=== PATIENT | male | born 1955 | race Caucasian/White ===

== ENCOUNTER 2020-07-30 07:49 | Outpatient (REF) | payer BC, SELFPAY | END 2020-07-30 07:50 | disposition home or self-care (01) | LOC: HO.HOSX 07:49 | PROVIDERS: Visit Provider Orthopaedic Surgery | DX: Z13.89 Encounter for screening for other disorder (principal) ==

== ENCOUNTER 2020-07-31 09:58 | Outpatient (REF) | payer BC, SELFPAY ==
--- NOTE | 2020-07-31 10:33 | ECG_ITS ---
Test Reason : CP Blood Pressure : / mmHG Vent. Rate : 065 BPM Atrial Rate : 065 BPM P-R Int : 186 ms QRS Dur : 082 ms QT Int : 402 ms P-R-T Axes : 067 050 035 degrees QTc Int : 418 ms Normal sinus rhythm Normal ECG When compared with ECG of 16-NOV-2007 06:18, No significant change was found Referred By: Deepak Em Electronically Signed By:RAE MCCLAIN
--- NOTE | 2020-07-31 10:48 | XR_ITS ---
EXAMINATION: BILATERAL KNEE X-RAY CLINICAL INFORMATION: Osteoarthritis COMPARISON: Previous x-ray most recent October 2019 TECHNIQUE: 3 views of each knee FINDINGS: Right: There is varus angulation. Bone alignment is otherwise normal. No fracture or dislocation is seen. There is evidence of tricompartment arthritis with joint space narrowing and osteophyte formation. There is a large joint effusion. Left: There is varus angulation. Bone alignment is otherwise normal. No fracture or dislocation is seen. There is tricompartment arthritis and joint space narrowing and osteophyte formation. There is a moderate joint effusion. XR/XR knee RT 2V IMPRESSION: I lateral valgus angulation, tricompartment arthritis and joint effusion.
--- NOTE | 2020-07-31 10:48 | XR_ITS ---
EXAMINATION: BILATERAL KNEE X-RAY CLINICAL INFORMATION: Osteoarthritis COMPARISON: Previous x-ray most recent October 2019 TECHNIQUE: 3 views of each knee FINDINGS: Right: There is varus angulation. Bone alignment is otherwise normal. No fracture or dislocation is seen. There is evidence of tricompartment arthritis with joint space narrowing and osteophyte formation. There is a large joint effusion. Left: There is varus angulation. Bone alignment is otherwise normal. No fracture or dislocation is seen. There is tricompartment arthritis and joint space narrowing and osteophyte formation. There is a moderate joint effusion. XR/XR knee standing BI IMPRESSION: I lateral valgus angulation, tricompartment arthritis and joint effusion.
--- NOTE | 2020-07-31 10:48 | XR_ITS ---
EXAMINATION: BILATERAL KNEE X-RAY CLINICAL INFORMATION: Osteoarthritis COMPARISON: Previous x-ray most recent October 2019 TECHNIQUE: 3 views of each knee FINDINGS: Right: There is varus angulation. Bone alignment is otherwise normal. No fracture or dislocation is seen. There is evidence of tricompartment arthritis with joint space narrowing and osteophyte formation. There is a large joint effusion. Left: There is varus angulation. Bone alignment is otherwise normal. No fracture or dislocation is seen. There is tricompartment arthritis and joint space narrowing and osteophyte formation. There is a moderate joint effusion. XR/XR knee LT 2V IMPRESSION: I lateral valgus angulation, tricompartment arthritis and joint effusion.
[2020-07-31 10:56] LABS: Basophils Percent Auto 0.8 % (0-2); Eosinophils Absolute Auto 0.3 X10*3/uL (0.0-0.4); Eosinophils Percent Auto 5.1 % (0-4); Hemoglobin 13.2 g/dl (14.0-18.0); Imm Gran Abs Auto 0.01 X10*3/uL (0.00-0.03); Imm Gran Pct Auto 0.2 % (0.0-0.4); Lymphocytes Absolute Auto 1.6 X10*3/uL (1.2-4.9); Lymphocytes Percent Auto 30.9 % (20-40); MANUAL DIFF FLAG NO; Mean Corpuscular HGB Conc 32.2 g/dl (31.0-36.0); Mean Corpuscular Hemoglobin 30.1 pg (27.0-33.0); Mean Corpuscular Volume 93.6 fL (80-98); Mean Platelet Volume 9.8 fL (9.4-12.4); Monocytes Absolute Auto 0.6 X10*3/uL (0.1-1.2); Monocytes Percent Auto 10.6 % (2-11); Neutrophils Absolute Auto 2.8 X10*3/uL (2.0-8.3); Neutrophils Percent Auto 52.4 % (45-73); Platelet Count 224 X10*3/uL (160-400); Red Blood Count 4.38 X10*6/uL (4.60-5.80); Red Cell Distribution Width 12.1 % (11.0-16.0); White Blood Count 5.3 X10*3/uL (4.8-10.8)
[2020-07-31 11:21] LABS: Anion Gap 11 (12-20); Blood Urea Nitrogen 17 mg/dL (9-16); Calcium 8.9 mg/dL (8.4-10.2); Carbon Dioxide 29 mmol/L (22-29); Chloride 105 mmol/L (96-108); Estimated Glomerular Filt Rate > 60; Glucose Random 107 mg/dL (60-115); Potassium 5.1 mmol/l (3.3-5.1); Sodium 140 mmol/L (135-145)
== END 2020-07-31 09:59 | disposition home or self-care (01) ==
LOC: HO.LAB 09:58
PROVIDERS: PCP Nurse Practitioner Family; Visit Provider Orthopaedic Surgery
DX: M17.0 Bilateral primary osteoarthritis of knee (principal)
CPT/HCPCS: 36415; 73560; 73565; 80048; 85025; 93005

== ENCOUNTER → 2020-08-30 12:48 | Outpatient (BNVA) | payer BC, SELFPAY | PROVIDERS: Visit Provider Physician Assistant ==

== ENCOUNTER 2020-09-04 05:51 | Inpatient (IN) | payer BC, SELFPAY ==
[2020-08-27 11:50] VITALS: BMI 31.1
[2020-08-27 12:12] VITALS: BP 137/72; PULSE 76; RESP 20; O2SAT 99
--- NOTE | 2020-08-27 12:33 | P.CONAN_ITS ---
Documented by User: Debo Piper 09/03/20 11:39 HPI - Anesthesia Eval Consult details Narrative: 65 yo M for Right Total Knee Replacement Pt on suboxone daily. To continue. Reviewed with Dr Blair PCP cleared ON LICENSE OF [facility] Past Medical History Medical History Acid reflux Anxiety Depression History of anemia History of opioid abuse Hypertension Family History Family history of problems with anesthesia: No Surgical History Surgical History History of carpal tunnel release Hx of abdominal surgery Hx of arthroscopy of left knee History of Problems with Anesthesia: No Social History Social History Are you a primary administrator health care facility to a significant other at home: No Do you presently have visiting nurse or other home services: No Smoking Status: Former smoker Smoking Quit Date: 5 yrs Second Hand Smoke Exposure: Yes Use of substances other than those prescribed or required for medical reasons: No Substance Use Type Other:: on suboxone x 8 years Have you been hit, kicked, punched, or otherwise hurt by someone within the past year? If so, by whom?: No Advance Directives: No Advance Directives Information Provided: No Advance Directives on File: No Recently lost weight without trying: No Narrative Narrative: No recent illness. >4 mets with walking/work Meds Allergies Allergy/AdvReac Type Severity Reaction Status Date / Time No Known Allergies Allergy Mild NOT Unverified 08/27/20 11:50 APPLICABLE Home Medications Medication Instructions Recorded Confirmed Type buprenorphine 8 mg-naloxone 2 mg 1.5 film BUCCAL Q24H 07/30/20 08/27/20 History sublingual film lorazepam 2 mg tablet 2 mg PO DAILY PRN 07/30/20 08/27/20 History bupropion HCl 3 tab PO DAILY 08/27/20 08/27/20 History buspirone 1 tab PO BID 08/27/20 08/27/20 History finasteride 1 tab PO DAILY 08/27/20 08/27/20 History ibuprofen [Advil] 400 mg PO Q8H PRN 08/27/20 08/27/20 History lisinopril 10 mg PO DAILY 08/27/20 08/27/20 History omeprazole 20 mg PO DAILY PRN 08/27/20 08/27/20 History Exam Exam Date and Time: August 27, 2020 1233 Height,Weight and Vital Signs: Height 5 ft 10 in Weight 98.43 kg Last Vital Signs Pulse 76 08/27/20 12:12 Resp 20 08/27/20 12:12 BP 137/72 08/27/20 12:12 Pulse Ox 99 08/27/20 12:12 Pertinent Lab Results Pertinent Lab Results: Laboratory Tests 07/31/20 07/31/20 10:22 10:22 WBC 5.3 Hgb 13.2 L Hct 41.0 L Plt Count 224 Sodium 140 Potassium 5.1 Chloride 105 Carbon Dioxide 29 BUN 17 H Creatinine 0.86 Narrative Narrative: EKG 07/31/20 Normal sinus rhythm Normal ECG When compared with ECG of 16-NOV-2007 06:18, No significant change was found Airway Mallampati Class: I TM Dist: >3cm Neck ROM: Full Loose/Missing/Broken Teeth: No Heart: RRR Lungs: CTAB Assessment and Plan Assessment Anesthesia Assessment: Anesthesia Plan Discussed and PAT Visit Documented by User: Adiel Beltran MD 09/04/20 08:57 PMFSH Past Medical History Medical History Acid reflux Anxiety Depression History of anemia History of opioid abuse Hypertension Surgical History Surgical History History of carpal tunnel release Hx of abdominal surgery Hx of arthroscopy of left knee Social History Social History Are you a primary administrator health care facility to a significant other at home: No Do you presently have visiting nurse or other home services: No Smoking Status: Former smoker Smoking Quit Date: 5 yrs Second Hand Smoke Exposure: Yes Use of substances other than those prescribed or required for medical reasons: No Substance Use Type Other:: on suboxone x 8 years Have you been hit, kicked, punched, or otherwise hurt by someone within the past year? If so, by whom?: No Advance Directives: No Advance Directives Information Provided: No Advance Directives on File: No Recently lost weight without trying: No Meds Allergies Allergy/AdvReac Type Severity Reaction Status Date / Time No Known Allergies Allergy Mild NOT Unverified 08/27/20 11:50 APPLICABLE Home Medications Medication Instructions Recorded Confirmed Type buprenorphine 8 mg-naloxone 2 mg 1.5 film BUCCAL Q24H 07/30/20 08/27/20 History sublingual film lorazepam 2 mg tablet 2 mg PO DAILY PRN 07/30/20 08/27/20 History bupropion HCl 3 tab PO DAILY 08/27/20 08/27/20 History buspirone 1 tab PO BID 08/27/20 08/27/20 History finasteride 1 tab PO DAILY 08/27/20 08/27/20 History ibuprofen [Advil] 400 mg PO Q8H PRN 08/27/20 08/27/20 History lisinopril 10 mg PO DAILY 08/27/20 08/27/20 History omeprazole 20 mg PO DAILY PRN 08/27/20 08/27/20 History Assessment and Plan Assessment Anesthesia Assessment: Anesthesia Plan Discussed and Chart Reviewed Final Anesthetic Review NPO: Yes ASA Class: II Final Preanesthetic Review: No Changes in Pt Med Stat, Meds/Allgs Chart Reviewed, Consent Obtained/Reviewed and Anes Risks/Benef Reviewed Patient Risk: Intermediate Procedure Risk: Intermediate Anesthetic Plan Anesthetic Plan: MAC:, Spinal and Regional Block Disposition: Standard PACU
[2020-08-27 15:35] LABS: MRSA Nasal PCR NEGATIVE (Negative); SA Nasal PCR NEGATIVE (Negative)
[2020-09-04] VITALS (13 sets, daily range): BP systolic 109–132; BP diastolic 62–90; PULSE 71–114; RESP 16–20; TEMP 36.1–39.1; O2SAT 94–100
--- NOTE | 2020-09-04 | XR_ITS ---
EXAMINATION: PORTABLE CHEST 1 VIEW CLINICAL INFORMATION: fever, tachycardia, post op . COMPARISON: 10/22/2011. TECHNIQUE: Portable frontal view of the chest was obtained. FINDINGS: The lungs are hypoexpanded. No focal infiltrate, effusion, edema, or pneumothorax. Cardiac and mediastinal silhouettes are within normal limits for technique. No acute bony abnormality seen. XR/XR chest 1V IMPRESSION: Hypoexpanded but otherwise no evidence of acute disease.
[2020-09-04] MEDS: Gabapentin 600 MG TABLET PO (06:43)
[2020-09-04 06:44] LABS: COVID-19 Test Negative (Negative)
--- NOTE | 2020-09-04 09:36 | MHC.SHP ---
Pre-Procedural Eval Section A The patient is an INPATIENT: No Changes since office visit: Yes Patient answered all questions; No Cold of Flu in the past 2 weeks, No New Medical Problems and No Changes in Medication The History & Physical has been completed within 30 days and I have reviewed it.: Yes Section B Chief Complaint: S/P TOTAL RIGHT KNEE Allergies: Allergies Allergy/AdvReac Type Severity Reaction Status Date / Time No Known Allergies Allergy Mild NOT Unverified 08/27/20 11:50 APPLICABLE Plan I have reviewed the history and physical and performed a pertinent physical examination on my patient. No changes have occurred unless specified.
--- NOTE | 2020-09-04 09:37 | PM.OP ---
Brief Operative Note Date of Service: 09/04/20 Pre-op diagnosis: right knee OA Post-op diagnosis: same Procedure: right TKA Implants: [employer] press fit 12/06/09CR/35a Surgeon: Deepak Em MD Anesthesia: regional and spinal Anne[place] Helper: Anuja Flanagan Estimated blood loss (mL): 150 Tourniquet time (min): 0 IV fluids (mL): 1,100 Pathology: other Condition: stable Disposition: PACU
--- NOTE | 2020-09-04 10:23 | XR_ITS ---
EXAMINATION: XR KNEE, RIGHT CLINICAL INFORMATION: Status post right total knee arthroplasty. COMPARISON: Radiographs of the right knee done on 07/31/2020. TECHNIQUE: Two views of the right knee. FINDINGS: Prosthetic components of the right total knee arthroplasty are appropriately aligned. No periprosthetic fracture. Gas from recent surgery is present in the joint and surrounding soft tissues. A joint effusion is present. XR/XR knee RT 2V IMPRESSION: Appropriate alignment of the right total knee arthroplasty.
[2020-09-04] MEDS: oxyCODONE HCl Immed Release 5 MG TABLET 10 MG PO ×2 (13:54→19:15)
[2020-09-04] MEDS: Dextrose 5 % and 0.45 % NaCl 1,000 ML 80 ML IVCONT (14:07)
[2020-09-04] MEDS: ceFAZolin Sodium/Dextrose,Iso 2 GM/50 ML PIGGYBACK IV (14:07)
[2020-09-04] MEDS: HYDROmorphone HCl 0.5 MG/0.5 ML SYRINGE 0.25 MG IVPUSH (14:33)
[2020-09-04] MEDS: ondansetron HCL 4 MG/2 ML VIAL IVPUSH (15:11)
[2020-09-04] MEDS: Acetaminophen 325 MG TABLET 650 MG PO (15:50)
[2020-09-04] MEDS: HYDROmorphone HCl 0.5 MG/0.5 ML SYRINGE IVPUSH (16:34)
[2020-09-04] MEDS: Buprenorphine/Naloxone 8/2 mg FILM 1.5 FILM BUCCAL (17:42)
[2020-09-04 17:47] LABS: Basophils Percent Auto 0.2 % (0-2); Eosinophils Percent Auto 0.1 % (0-4); Hematocrit 30.7 % (42-52); Hemoglobin 10.3 g/dl (14.0-18.0); Imm Gran Abs Auto 0.04 X10*3/uL (0.00-0.03); Imm Gran Pct Auto 0.3 % (0.0-0.4); Lymphocytes Absolute Auto 0.7 X10*3/uL (1.2-4.9); Lymphocytes Percent Auto 6.2 % (20-40); Mean Corpuscular HGB Conc 33.6 g/dl (31.0-36.0); Mean Corpuscular Hemoglobin 30.1 pg (27.0-33.0); Mean Corpuscular Volume 89.8 fL (80-98); Mean Platelet Volume 9.3 fL (9.4-12.4); Monocytes Absolute Auto 0.8 X10*3/uL (0.1-1.2); Monocytes Percent Auto 6.3 % (2-11); Neutrophils Absolute Auto 10.4 X10*3/uL (2.0-8.3); Neutrophils Percent Auto 86.9 % (45-73); Platelet Count 228 X10*3/uL (160-400); Red Blood Count 3.42 X10*6/uL (4.60-5.80); Red Cell Distribution Width 12.1 % (11.0-16.0)
[2020-09-04 17:50] LABS: MANUAL DIFF FLAG NO
[2020-09-04 18:09] LABS: Lactic Acid 1.2 mmol/L (0.5-2.0)
[2020-09-04 18:14] LABS: Anion Gap 11 (12-20); Blood Urea Nitrogen 16 mg/dL (9-16); Calcium 8.3 mg/dL (8.4-10.2); Carbon Dioxide 26 mmol/L (22-29); Chloride 100 mmol/L (96-108); Creatinine Clr Calc Pharmacy 104.6; Estimated Glomerular Filt Rate > 60; Glucose Random 131 mg/dL (60-115); Sodium 133 mmol/L (135-145)
--- NOTE | 2020-09-04 18:28 | P.CONIM_ITS ---
History of Present Illness Data of Consult Service Date: 09/04/20 Requesting physician: Federica Bailey Primary Care Provider: MAURA Boyd HPI Reason for consult: Medical Management 65 year old man admitted by orthopedic surgery and is status post right knee arthroplasty. Surgery was unremarkable, he has been able to eat and drink however his pain has been quite severe. He was able to get up and walk but he stated after the nerve block wore away the pain started. He had been medicated multiple times and has ice on the site. He spiked a fever of 101.2 and was tachycardic with heart rate of 107. Review of Systems Review of Systems: Denies any recent fever chills or decrease in appetite respiratory denies any shortness of breath coverage production cardiovascular is adjustment of any PND or edema gastrointestinal denies any dysphagia abdominal pain nausea vomiting or diarrh ea genitourinary denies any dysuria frequency or hematuria musculoskeletal See HPI neuropsych denies any weakness or seizures all other systems reviewed are negative [facility] Medical History Acid reflux Anxiety Depression History of anemia History of opioid abuse Hypertension Pertinent family history: No cardiac disease Surgical History History of carpal tunnel release Hx of abdominal surgery Hx of arthroscopy of left knee Social History Are you a primary career services representative to a significant other at home: No Do you presently have visiting nurse or other home services: No Smoking Status: Former smoker Smoking Quit Date: 5 yrs Second Hand Smoke Exposure: Yes Use of substances other than those prescribed or required for medical reasons: No Substance Use Type Other:: on suboxone x 8 years Have you been hit, kicked, punched, or otherwise hurt by someone within the past year? If so, by whom?: No Advance Directives: No Advance Directives Information Provided: No Advance Directives on File: No Recently lost weight without trying: No Meds Allergies Allergy/AdvReac Type Severity Reaction Status Date / Time No Known Allergies Allergy Mild NOT Unverified 08/27/20 11:50 APPLICABLE Home Medications Medication Instructions Recorded Confirmed Type buprenorphine 8 mg-naloxone 2 mg 1.5 film BUCCAL Q24H 07/30/20 08/27/20 History sublingual film bupropion HCl 450 mg PO DAILY 08/27/20 09/04/20 History buspirone 5 mg PO BID 08/27/20 09/04/20 History finasteride 1 mg PO DAILY 08/27/20 09/04/20 History ibuprofen [Advil] 400 mg PO Q8H PRN 08/27/20 08/27/20 History lisinopril 10 mg PO DAILY 08/27/20 08/27/20 History omeprazole 20 mg PO DAILY PRN 08/27/20 08/27/20 History lorazepam 0.5 mg PO DAILY PRN 09/04/20 09/04/20 History Physical Exam Vital Signs and Narrative: Vital Signs: Last Vital Signs Temp 101.2 F H 09/04/20 17:44 Pulse 107 H 09/04/20 15:38 Resp 19 09/04/20 15:38 BP 132/70 09/04/20 15:38 Pulse Ox 99 09/04/20 15:38 Body Mass Index 31.1 Appearing in no acute distress head is normocephalic atraumatic eyes pupils are PERRLA sclera is anicteric mouth throat mucous membranes are intact and moist neck is supple no lymphadenopathy, no JVD noted lung sounds are clear to auscultation heart regular rate rhythm, clear S1, S2 positive bowel sounds, abdomen is soft, nontender neuro patient is alert x3, no focal deficits MSK right knee dressing clean, dry and intact. Results Labs CBC and Chem 7: 09/04/20 17:37 09/04/20 17:37 Labs: Laboratory Results - last 24 hr 09/04/20 09/04/20 09/04/20 06:14 17:37 17:37 MCV 89.8 MCH 30.1 MCHC 33.6 RDW 12.1 Plt Count 228 MPV 9.3 L Immature Gran % (Auto) 0.3 Neut % (Auto) 86.9 H Lymph % (Auto) 6.2 L Fleming % (Auto) 6.3 Eos % (Auto) 0.1 Baso % (Auto) 0.2 Lymph # (Auto) 0.7 L Fleming # (Auto) 0.8 Eos # (Auto) 0.0 Baso # (Auto) 0.0 Abs Immat Gran (auto) 0.04 H Absolute Neuts (auto) 10.4 H Absolute Nucleated RBC 0.000 Nucleated RBC % (auto) 0.0 Anion Gap 11 L Estim Creat Clear Calc 104.6 Estimated GFR > 60 Random Glucose 131 H Lactic Acid Calcium 8.3 L D COVID-19 (BHARAT) Negative COVID-19 Clin Com See Note 09/04/20 17:37 MCV MCH MCHC RDW Plt Count MPV Immature Gran % (Auto) Neut % (Auto) Lymph % (Auto) Fleming % (Auto) Eos % (Auto) Baso % (Auto) Lymph # (Auto) Fleming # (Auto) Eos # (Auto) Baso # (Auto) Abs Immat Gran (auto) Absolute Neuts (auto) Absolute Nucleated RBC Nucleated RBC % (auto) Anion Gap Estim Creat Clear Calc Estimated GFR Random Glucose Lactic Acid 1.2 Calcium COVID-19 (BHARAT) COVID-19 Clin Com Imaging Radiologist's Impressions: Impressions Chest X-Ray 09/04/20 00:00 IMPRESSION: Hypoexpanded but otherwise no evidence of acute disease. Knee X-Ray 09/04/20 10:23 IMPRESSION: Appropriate alignment of the right total knee arthroplasty. Assessment and Plan (1) Localized osteoarthritis of right knee: Status: Acute 65 year old man admitted by orthopedic surgery and is status post right knee arthroplasty Right knee arthroplasty. Management as per surgical team. Pain. Adjust pain medication. Supportive care. Fever. Check Blood cultures, CXR, UA, lactic acid. Likely from pain, post surgery but will r/o sepsis. Hyponatremia. Mild, follow BMP. Hx of opiod abuse. Oxycodone abuse. On Suboxone. Continue. Depression. Continue home medications. HTN. Continue Lisinopril. GERD. PPI. DVT prophylaxis with full dose aspirin Discussed with Dr. Saavedra Full code
--- NOTE | 2020-09-04 19:07 | MHC.PIE ---
P: PATIENT IN 05/12 PAIN. UNRELIEVED BY OXYCODONE GIVEN AT 1354 AND DILAUDID GIVEN AT 1433. I: NOTIFIED CHRISTINA SWEET, DR. MORTON, DR. LUGO AND ROSALINA SWEET. NEW ORDER FOR DILAUDID 0.5MG IV Q3H, ADMINISTERED AT 1634. E: PATIENT STATES PAIN HAS DECREASED BUT HAS THROBBING PAIN INTERMITTENTLY.
--- NOTE | 2020-09-04 19:10 | MHC.PIE ---
P: PATIENT HAS A FEVER 102.3 ORALLY. I: NOTIFIED DOCTOR INSTRUM NO NEW ORDERS. NOTIFIED HEIDY MORALES. NEW ORDERS FOR SEPSIS WORK UP. E: PATIENT FEVER DECREASED TO 101.2. NOTIFIED HEIDY MORALES, NO NEW ORDERS AT THIS TIME.
[2020-09-04 21:31] LABS: Glucose Urine UA NEG (NEG); Leukocyte Esterase Urine NEG (NEG); Nitrite Urine NEG (NEG); Urine Blood 1+ (NEG); Urine Ketones NEG (NEG); Urine Protein NEG (NEG-TRACE)
[2020-09-04 21:33] LABS: Appearance Urine CLEAR; Color Urine YELLOW
[2020-09-04 21:38] LABS: Bacteria Urine TRACE /LPF; RBC Urine 0-2 /HPF (0); WBC Urine 0 /HPF (0-4)
[2020-09-04] MEDS: Celecoxib 200 MG CAPSULE PO (22:20)
[2020-09-04] MEDS: oxyCODONE HCl ER 10 MG TAB.ER.12H PO (22:20)
[2020-09-04] MEDS: busPIRone HCl 5 MG TABLET PO (22:20)
[2020-09-05] MEDS: HYDROmorphone HCl 0.5 MG/0.5 ML SYRINGE IVPUSH ×3 (01:00→10:01)
[2020-09-05] MEDS: Dextrose 5 % and 0.45 % NaCl 1,000 ML 80 ML IVCONT (01:11)
[2020-09-05 04:00] VITALS: BP 133/79; PULSE 93; RESP 20; TEMP 36.7; O2SAT 91
[2020-09-05] MEDS: oxyCODONE HCl Immed Release 5 MG TABLET 10 MG PO ×4 (05:53→20:40)
[2020-09-05 06:50] LABS: MANUAL DIFF FLAG NO
[2020-09-05 07:06] LABS: Basophils Percent Auto 0.2 % (0-2); Eosinophils Percent Auto 0.3 % (0-4); Hematocrit 28.6 % (42-52); Hemoglobin 9.5 g/dl (14.0-18.0); Imm Gran Abs Auto 0.04 X10*3/uL (0.00-0.03); Imm Gran Pct Auto 0.4 % (0.0-0.4); Lymphocytes Absolute Auto 1.5 X10*3/uL (1.2-4.9); Lymphocytes Percent Auto 13.9 % (20-40); Mean Corpuscular HGB Conc 33.2 g/dl (31.0-36.0); Mean Corpuscular Hemoglobin 30.3 pg (27.0-33.0); Mean Corpuscular Volume 91.1 fL (80-98); Mean Platelet Volume 9.5 fL (9.4-12.4); Monocytes Percent Auto 9.6 % (2-11); Neutrophils Absolute Auto 8.1 X10*3/uL (2.0-8.3); Neutrophils Percent Auto 75.6 % (45-73); Platelet Count 213 X10*3/uL (160-400); Red Blood Count 3.14 X10*6/uL (4.60-5.80); Red Cell Distribution Width 12.3 % (11.0-16.0); White Blood Count 10.7 X10*3/uL (4.8-10.8)
[2020-09-05 07:18] LABS: Anion Gap 10 (12-20); Blood Urea Nitrogen 10 mg/dL (9-16); Carbon Dioxide 29 mmol/L (22-29); Chloride 100 mmol/L (96-108); Creatinine Clr Calc Pharmacy 111.1; Estimated Glomerular Filt Rate > 60; Glucose Fasting 143 mg/dL (60-99); Potassium 4.2 mmol/L (3.3-5.1); Sodium 135 mmol/L (135-145)
--- NOTE | 2020-09-05 07:58 | PM.PNORT ---
Subjective Subjective Date of Service: 09/05/20 Principal diagnosis: POD 1 s/p RT TKA Interval history: No overnight events Resting in bed, has better pain control with medication adjustment. He has been out of bed yesterday. Waiting for PT today. No concerns. Would like to go home today Physical Exam Vital Signs: Vital Signs: Last Vital Signs Temp 98.1 F 09/05/20 04:00 Pulse 93 09/05/20 04:00 Resp 20 09/05/20 04:00 BP 133/79 09/05/20 04:00 Pulse Ox 91 L 09/05/20 04:00 Body Mass Index 31.1 Const: General: cooperative, healthy appearing and no acute distress Resp: Effort & Inspection: normal respiratory effort and able to speak in complete sentences Cardio: Rate: regular rate Peripheral pulses: Peripheral pulses 2+ throughout GI: Palpation (GI): Soft to palpation Skin: General skin exam: no rashes or lesions noted Extrem: Other: Right knee bandage intact, no erythema, mild edema, sensation and pulses intact. Progress Note: A&P Assessment and plan (1) Status post total right knee replacement: Status: Acute Assessment and Plan: Continue pain mgmnt Begin asa for dvt ppx begin PT for RT TKA Dispo planning-Pending PT eval, pain mgmnt Fall Risk Details Current Medications: Current Medications Generic Name Dose Route Start Last Admin Trade Name Freq PRN Reason Stop Dose Admin Acetaminophen 650 mg 09/04/20 11:26 09/04/20 15:50 Acetaminophen 325 Mg Tablet PO 650 mg Q6H PRN Administration Pain, Mild (Pain Scale 1-3) Aspirin 325 mg 09/05/20 10:00 Aspirin 325 Mg Tablet PO BID CIRA Buprenorphine/Naloxone 1.5 film 09/04/20 12:00 09/04/20 17:42 Buprenorphine/Naloxone 8/2 Mg Film BUCCAL 1.5 film Q24H CIRA Administration Bupropion HCl 450 mg 09/05/20 09:00 Bupropion Hcl Xl 150 Mg Tab.Er.24h PO DAILY CIRA Buspirone HCl 5 mg 09/04/20 21:00 09/04/20 22:20 Buspirone Hcl 5 Mg Tablet PO 5 mg BID CIRA Administration Celecoxib 200 mg 09/04/20 21:00 09/04/20 22:20 Celecoxib 200 Mg Capsule PO 200 mg BID CIRA Administration Hydromorphone HCl 0.5 mg 09/04/20 16:30 09/05/20 04:44 Hydromorphone Hcl 0.5 Mg/0.5 Ml Syringe IVPUSH 0.5 mg Q3H PRN Administration Pain, Severe (Pain Scale 7-10) Lorazepam 2 mg 09/04/20 11:26 Lorazepam 1 Mg Tablet PO DAILY PRN Anxiety Naloxone HCl 0.2 mg 09/04/20 11:26 Naloxone Hcl 0.4 Mg/Ml Vial IVPUSH Q2M PRN Excessive sedation or RR < 8 Omeprazole 20 mg 09/04/20 11:26 Omeprazole 20 Mg Capsule.Dr PO DAILY PRN Acid Reflux Ondansetron HCl 4 mg 09/04/20 11:26 09/04/20 15:11 Ondansetron Hcl 4 Mg/2 Ml Vial IVPUSH 4 mg Q8H PRN Administration Nausea and Vomiting Oxycodone HCl 10 mg 09/04/20 11:26 09/05/20 05:53 Oxycodone Hcl Immed Release 5 Mg Tablet PO 10 mg Q4H PRN Administration Pain, Moderate (Pain Scale 4-6 Oxycodone HCl 10 mg 09/04/20 21:00 09/04/20 22:20 Oxycodone Hcl Er 10 Mg Tab.Er.12h PO 10 mg BID CIRA Administration Senna 17.2 mg 09/04/20 11:26 Sennosides 8.6 Mg Tablet PO BEDTIME PRN Constipation Sodium Chloride 3 ml 09/04/20 16:00 09/05/20 01:11 0.9 % Sodium Chloride Flush 3 Ml Syringe IVFLUSH Not Given QSHIFT [facility] Time Spent With Patient Time: Total time spent is greater than 50% in coordination of care (as documented) at patient's floor/unit and/or counseling patient: Time with patient: 15 - 24 minutes
[2020-09-05 08:00] VITALS: BP 146/80; PULSE 96; RESP 18; TEMP 36.8; O2SAT 96
[2020-09-05] MEDS: Celecoxib 200 MG CAPSULE PO ×2 (08:03→20:40)
[2020-09-05] MEDS: buPROPion HCl XL 150 MG TAB.ER.24H 450 MG PO (08:03)
[2020-09-05] MEDS: oxyCODONE HCl ER 10 MG TAB.ER.12H PO ×2 (08:03→20:40)
[2020-09-05] MEDS: busPIRone HCl 5 MG TABLET PO ×2 (08:03→20:39)
[2020-09-05] MEDS: 0.9 % Sodium Chloride Flush 3 ML SYRINGE IVFLUSH ×2 (08:07→15:40)
--- NOTE | 2020-09-05 09:22 | MHC.CM.PN ---
CM met with Patient at bedside. Patient lives in a house with his Fiance of 7 years and her adult Son. Patient has a walker and a cane at home. Goal for dc is home with a new referral to [facility] for home PT. CM has initiated and will follow for dc planning. PCP is Dr. Joseline Maza. Patient goes monthly to, [facility] in [place] for his Suboxone.
[2020-09-05] MEDS: Aspirin 325 MG TABLET PO ×2 (10:00→20:39)
--- NOTE | 2020-09-05 10:01 | OP_ITS ---
SURGEON: Deepak Em MD INDICATIONS: This is a 65-year-old gentleman with severe osteoarthritis of the bilateral knees, consented to undergo right total knee arthroplasty. PREOPERATIVE DIAGNOSIS: Right knee osteoarthritis. POSTOPERATIVE DIAGNOSIS: Right knee osteoarthritis. PROCEDURE PERFORMED: Right total knee arthroplasty. ESTIMATED BLOOD LOSS: 150 mL. COMPLICATIONS: None known. ANESTHESIA: Regional and spinal. ASSISTANTS: KEE Sawant. SPECIMENS: IMPLANTS: [place] [employer] press-fit 5 femur/6 tibia/10 CR insert/35 asymmetric patella. TOURNIQUET TIME: Zero. FLUIDS: 1100. PROCEDURE IN DETAIL: The patient was brought to the operating room, placed supine on the operative table and prepped and draped in standard sterile fashion. Time-out was called to identify proper site, proper procedure, proper surgeon. IV antibiotics per weight was administered. I began by making a midline incision down to the retinaculum and performed a medial parapatellar arthrotomy. I translated the patella and resected the infrapatellar fat pad and performed a medial peel. He had severe eburnation of the medial femoral condyle. [place]'s line was used to drill my intramedullary femoral guide and I made my distal femoral cut, 5 degrees of valgus taking the 11 mm off the distal femur. I then sized a size 5 femur, made my anterior, posterior, and chamfer cuts, protecting the soft tissues at all times. I then turned my attention the tibia, where I removing the menisci and protecting the PCL. I made a tibial cut in line with the tibial crest and the 3rd ray, removing 9 mm off the lateral side. Extension block was used to confirm its appropriate extension. I was happy with this and a size 6 tibia was trialed. I then took the knee through range of motion with a trial of femur, tibia, and insert and was happy with the balance and range. Therefore, I resurfaced the undersurface of the patella using an asymmetric patella. I again took the knee through range of motion and was happy with the range, stability, and tracking. Therefore, I removed all instrumentation. Then, I irrigated copiously, press-fit the femur and tibia in standard fashion, and trialed a 9, 10, 11 insert. I was happiest with a 10 insert. This was placed. The patella was also press-fit in place. Prior to this, was used to cauterize the meniscal beds and local TXA with 3-minute iodine soak was performed. Layered closure with dorothea on the skin and the patient was placed in sterile dressing, extubated, and brought to recovery room in stable condition. There were no known complications. MD UTE Rapp/AHMET / [id number]
--- NOTE | 2020-09-05 10:56 | HO.PM.IMPN ---
Subjective Subjective Date of Service: 09/05/20 Interval History: pain, no further fevers Cardiovascular Cardiovascular: Reports no additional cardiovascular complaints Gastrointestinal Gastrointestinal: Reports no additional gastrointestinal complaints Physical Exam Vital Signs: Vital Signs: Last Vital Signs Temp 98.2 F 09/05/20 08:00 Pulse 96 09/05/20 08:00 Resp 18 09/05/20 08:00 BP 146/80 H 09/05/20 08:00 Pulse Ox 96 09/05/20 08:00 Body Mass Index 31.1 General: AO X 3, no acute distress Resp: CTA bilateral CVS: S1,S2,RRR GI: soft, non tender, non distended Neuro: motor grossly intact Psych: appropriate affect Objective Data Current Medications Generic Name Dose Route Start Last Admin Trade Name Freq PRN Reason Stop Dose Admin Acetaminophen 650 mg 09/04/20 11:26 09/04/20 15:50 Acetaminophen 325 Mg Tablet PO 650 mg Q6H PRN Administration Pain, Mild (Pain Scale 1-3) Aspirin 325 mg 09/05/20 10:00 09/05/20 10:00 Aspirin 325 Mg Tablet PO 325 mg BID CIRA Administration Buprenorphine/Naloxone 1.5 film 09/04/20 12:00 09/04/20 17:42 Buprenorphine/Naloxone 8/2 Mg Film BUCCAL 1.5 film Q24H CIRA Administration Bupropion HCl 450 mg 09/05/20 09:00 09/05/20 08:03 Bupropion Hcl Xl 150 Mg Tab.Er.24h PO 450 mg DAILY CIRA Administration Buspirone HCl 5 mg 09/04/20 21:00 09/05/20 08:03 Buspirone Hcl 5 Mg Tablet PO 5 mg BID CIRA Administration Celecoxib 200 mg 09/04/20 21:00 09/05/20 08:03 Celecoxib 200 Mg Capsule PO 200 mg BID CIRA Administration Hydromorphone HCl 0.5 mg 09/04/20 16:30 09/05/20 10:01 Hydromorphone Hcl 0.5 Mg/0.5 Ml Syringe IVPUSH 0.5 mg Q3H PRN Administration Pain, Severe (Pain Scale 7-10) Lorazepam 2 mg 09/04/20 11:26 Lorazepam 1 Mg Tablet PO DAILY PRN Anxiety Naloxone HCl 0.2 mg 09/04/20 11:26 Naloxone Hcl 0.4 Mg/Ml Vial IVPUSH Q2M PRN Excessive sedation or RR < 8 Omeprazole 20 mg 09/04/20 11:26 Omeprazole 20 Mg Capsule.Dr PO DAILY PRN Acid Reflux Ondansetron HCl 4 mg 09/04/20 11:26 09/04/20 15:11 Ondansetron Hcl 4 Mg/2 Ml Vial IVPUSH 4 mg Q8H PRN Administration Nausea and Vomiting Oxycodone HCl 10 mg 09/04/20 11:26 09/05/20 05:53 Oxycodone Hcl Immed Release 5 Mg Tablet PO 10 mg Q4H PRN Administration Pain, Moderate (Pain Scale 4-6 Oxycodone HCl 10 mg 09/04/20 21:00 09/05/20 08:03 Oxycodone Hcl Er 10 Mg Tab.Er.12h PO 10 mg BID CIRA Administration Senna 17.2 mg 09/04/20 11:26 Sennosides 8.6 Mg Tablet PO BEDTIME PRN Constipation Sodium Chloride 3 ml 09/04/20 16:00 09/05/20 08:07 0.9 % Sodium Chloride Flush 3 Ml Syringe IVFLUSH 3 ml QSHIFT CIRA Administration Labs CBC & Chem 7: 09/05/20 06:43 09/05/20 06:43 Assessment and Plan (1) Localized osteoarthritis of right knee: Status: Acute Assessment and Plan: 65 year old man admitted by orthopedic surgery and is status post right knee arthroplasty Right knee arthroplasty. Management as per surgical team. fever isolated monitor off antibiotics Hx of opiod abuse. Oxycodone abuse. On Suboxone. Continue. HTN. Continue Lisinopril. GERD. PPI.
[2020-09-05 11:44] VITALS: BP 127/77; PULSE 87; RESP 18; TEMP 36.8; O2SAT 97
--- NOTE | 2020-09-05 13:38 | HO.POSTANES ---
Post Anesthesia Evaluation Post Anesthesia Evaluation Vital Signs: Vital Signs Temp Pulse Resp BP Pulse Ox 09/05/20 11:44 98.3 F 87 18 127/77 97 09/05/20 08:00 98.2 F 96 18 146/80 H 96 09/05/20 04:00 98.1 F 93 20 133/79 91 L Anesthesia: Spinal Mental Status: Awake Pain Control: Satisfactory Nausea/Vomiting: None Hydration: Adequate Anesthesia-Related Issues: No Anes. Related Issues
[2020-09-05 13:45] VITALS: BMI 31.1
[2020-09-05 15:51] VITALS: BP 132/53; PULSE 98; RESP 18; TEMP 36.8; O2SAT 99
[2020-09-05] MEDS: Acetaminophen 325 MG TABLET 650 MG PO (18:03)
[2020-09-05 19:43] VITALS: BP 113/59; PULSE 82; RESP 18; TEMP 36.9; O2SAT 98
[2020-09-05] MEDS: LORazepam 1 MG TABLET 2 MG PO (20:40)
[2020-09-06] VITALS: BP 138/72; PULSE 106; RESP 16; TEMP 36.9; O2SAT 98
[2020-09-06] MEDS: 0.9 % Sodium Chloride Flush 3 ML SYRINGE IVFLUSH (01:04)
[2020-09-06 04:00] VITALS: BP 133/63; PULSE 98; RESP 16; TEMP 36.4; O2SAT 98
[2020-09-06 06:06] LABS: MANUAL DIFF FLAG NO
[2020-09-06 06:12] LABS: Basophils Percent Auto 0.2 % (0-2); Eosinophils Absolute Auto 0.1 X10*3/uL (0.0-0.4); Eosinophils Percent Auto 0.5 % (0-4); Hematocrit 27.8 % (42-52); Hemoglobin 9.1 g/dl (14.0-18.0); Imm Gran Abs Auto 0.05 X10*3/uL (0.00-0.03); Imm Gran Pct Auto 0.4 % (0.0-0.4); Lymphocytes Absolute Auto 1.5 X10*3/uL (1.2-4.9); Lymphocytes Percent Auto 11.9 % (20-40); Mean Corpuscular HGB Conc 32.7 g/dl (31.0-36.0); Mean Corpuscular Hemoglobin 30.2 pg (27.0-33.0); Mean Corpuscular Volume 92.4 fL (80-98); Mean Platelet Volume 9.4 fL (9.4-12.4); Monocytes Absolute Auto 1.2 X10*3/uL (0.1-1.2); Monocytes Percent Auto 9.1 % (2-11); Neutrophils Absolute Auto 10.1 X10*3/uL (2.0-8.3); Neutrophils Percent Auto 77.9 % (45-73); Platelet Count 215 X10*3/uL (160-400); Red Blood Count 3.01 X10*6/uL (4.60-5.80); Red Cell Distribution Width 12.3 % (11.0-16.0); White Blood Count 12.9 X10*3/uL (4.8-10.8)
[2020-09-06 06:42] LABS: Anion Gap 15 (12-20); Blood Urea Nitrogen 13 mg/dL (9-16); Calcium 8.3 mg/dL (8.4-10.2); Carbon Dioxide 26 mmol/L (22-29); Chloride 101 mmol/L (96-108); Estimated Glomerular Filt Rate > 60; Glucose Fasting 122 mg/dL (60-99); Potassium 4.1 mmol/L (3.3-5.1); Sodium 138 mmol/L (135-145)
[2020-09-06] MEDS: Aspirin 325 MG TABLET PO (07:42)
[2020-09-06] MEDS: buPROPion HCl XL 150 MG TAB.ER.24H 450 MG PO (07:43)
[2020-09-06] MEDS: Acetaminophen 325 MG TABLET 650 MG PO (07:43)
[2020-09-06] MEDS: Celecoxib 200 MG CAPSULE PO (07:43)
[2020-09-06] MEDS: busPIRone HCl 5 MG TABLET PO (07:44)
[2020-09-06] MEDS: oxyCODONE HCl Immed Release 5 MG TABLET 10 MG PO (07:44)
--- NOTE | 2020-09-06 07:49 | PM.DS ---
DS: Providers Provider Date of Service: 09/06/20 Date of admission: 09/04/20 05:51 Primary care physician: MAURA Boyd Consults: 09/04/20 11:26 Consult to Hospitalist Routine Consulting Provider: Hospitalist DS: Diagnosis Discharge Diagnosis (1) Localized osteoarthritis of right knee: Status: Acute Problem details: Mr. Hubbard is a 65 yo male who presented to the office with ongoing right knee pain. He was found to have OA of the right knee and had failed all conservative treatment. He continued to have difficulty with ambulation and daily activities; therefore he consented to move forward with a Right total knee arthroplasty. DS: Medications Discharge Medications Home Medications: Home Medications Medication Instructions Recorded Confirmed buprenorphine 8 mg-naloxone 2 mg 1.5 film BUCCAL Q24H 07/30/20 08/27/20 sublingual film bupropion HCl 450 mg PO DAILY 08/27/20 09/04/20 buspirone 5 mg PO BID 08/27/20 09/04/20 finasteride 1 mg PO DAILY 08/27/20 09/04/20 lisinopril 10 mg PO DAILY 08/27/20 08/27/20 omeprazole 20 mg PO DAILY PRN 08/27/20 08/27/20 lorazepam 0.5 mg PO DAILY PRN 09/04/20 09/04/20 Previous Rx's Medication Instructions Recorded acetaminophen 650 mg PO Q6H PRN 30 Days #240 tab 09/06/20 aspirin 325 mg PO BID 14 Days #28 tab 09/06/20 celecoxib 200 mg PO BID 30 Days #60 cap 09/06/20 oxycodone 10 mg PO Q4H PRN 7 Days tab 09/06/20 sennosides [Senna Lax] 17.2 mg PO BEDTIME PRN 30 Days #30 09/06/20 tab DS: Summary Hospital Course Hospital Course: The patient underwent a successful right total knee arthroplasty, they were transferred to PACU and then to the floor to recover. During their stay, their vitals were stable, afebrile at 97.6. Labs were unremarkable, H/H 9.1/27.8. POD 1 they were started on Aspirin 325mg po bid for DVT ppx, they also received Physical Therapy services twice a day. Prior to discharge, their dressing was changed, incision clean dry and intact, new Aquacel dressing applied and the plan was to be discharged home with VNA services. Time Spent with Patient Time attestation: Total time spent providing and/or coordinating discharge services: Discharge coordination time: Less than 30 minutes Physical Exam Vital Signs: Vital Signs: Last Vital Signs Temp 97.6 F 09/06/20 04:00 Pulse 98 09/06/20 04:00 Resp 16 09/06/20 04:00 BP 133/63 09/06/20 04:00 Pulse Ox 98 09/06/20 04:00 Body Mass Index 31.1 Const: General: cooperative, healthy appearing and no acute distress Resp: Effort & Inspection: normal respiratory effort and able to speak in complete sentences Cardio: Rate: regular rate Peripheral pulses: Peripheral pulses 2+ throughout GI: Palpation (GI): Soft to palpation Skin: Lesions: no lesions Rashes: no rashes Extrem: Other: Rt knee no ecchymosis, redness, or drainage. Incision is well approximated and healing well. New Aquacel dressing applied. Calf supple and nontender. NVI. DS: Data Data Completed and Pending Completed studies during hospitalization [Text1]: Pending at discharge 09/04/20 09:21 Surgical [PTH] Routine Labs on day of discharge: Laboratory Tests 08/27/20 08/27/20 09/04/20 13:06 Unknown 06:14 WBC RBC Hgb Hct MCV MCH MCHC RDW Plt Count MPV Immature Gran % (Auto) Neut % (Auto) Lymph % (Auto) [place] % (Auto) Eos % (Auto) Baso % (Auto) Lymph # (Auto) [place] # (Auto) Eos # (Auto) Baso # (Auto) Abs Immat Gran (auto) Absolute Neuts (auto) Absolute Nucleated RBC Nucleated RBC % (auto) Sodium Potassium Chloride Carbon Dioxide Anion Gap BUN Creatinine Estim Creat Clear Calc Estimated GFR Random Glucose Fasting Glucose Lactic Acid Calcium Urine Color Urine Appearance Urine pH Ur Specific [place] Urine Protein Urine Glucose (UA) Urine Ketones Urine Blood Urine Nitrite Ur Leukocyte Esterase Urine RBC Urine WBC Ur Squamous Epith Cells Urine Bacteria Nasal Screen MRSA (PCR) NEGATIVE Nasal S. aureus Screen NEGATIVE Nasal MRSA/S.aureus Interp SEE NOTE COVID-19 ([facility]AT) Negative COVID-19 Clin Com See Note Blood Type O Positive Antibody Screen NEGATIVE 09/04/20 09/04/20 09/04/20 17:37 17:37 17:37 WBC 12.0 H RBC 3.42 L D Hgb 10.3 L D Hct 30.7 L D MCV 89.8 MCH 30.1 MCHC 33.6 RDW 12.1 Plt Count 228 MPV 9.3 L Immature Gran % (Auto) 0.3 Neut % (Auto) 86.9 H Lymph % (Auto) 6.2 L [place] % (Auto) 6.3 Eos % (Auto) 0.1 Baso % (Auto) 0.2 Lymph # (Auto) 0.7 L [place] # (Auto) 0.8 Eos # (Auto) 0.0 Baso # (Auto) 0.0 Abs Immat Gran (auto) 0.04 H Absolute Neuts (auto) 10.4 H Absolute Nucleated RBC 0.000 Nucleated RBC % (auto) 0.0 Sodium 133 L Potassium 4.0 Chloride 100 Carbon Dioxide 26 Anion Gap 11 L BUN 16 Creatinine 0.85 Estim Creat Clear Calc 104.6 Estimated GFR > 60 Random Glucose 131 H Fasting Glucose Lactic Acid 1.2 Calcium 8.3 L D Urine Color Urine Appearance Urine pH Ur Specific [place] Urine Protein Urine Glucose (UA) Urine Ketones Urine Blood Urine Nitrite Ur Leukocyte Esterase Urine RBC Urine WBC Ur Squamous Epith Cells Urine Bacteria Nasal Screen MRSA (PCR) Nasal S. aureus Screen Nasal MRSA/S.aureus Interp COVID-19 ([facility]) COVID-19 Clin Com Blood Type Antibody Screen 09/04/20 09/05/20 09/05/20 21:22 06:43 06:43 WBC 10.7 RBC 3.14 L Hgb 9.5 L Hct 28.6 L MCV 91.1 MCH 30.3 MCHC 33.2 RDW 12.3 Plt Count 213 MPV 9.5 Immature Gran % (Auto) 0.4 Neut % (Auto) 75.6 H Lymph % (Auto) 13.9 L [place] % (Auto) 9.6 Eos % (Auto) 0.3 Baso % (Auto) 0.2 Lymph # (Auto) 1.5 [place] # (Auto) 1.0 Eos # (Auto) 0.0 Baso # (Auto) 0.0 Abs Immat Gran (auto) 0.04 H Absolute Neuts (auto) 8.1 Absolute Nucleated RBC 0.000 Nucleated RBC % (auto) 0.0 Sodium 135 Potassium 4.2 Chloride 100 Carbon Dioxide 29 Anion Gap 10 L BUN 10 Creatinine 0.80 Estim Creat Clear Calc 111.1 Estimated GFR > 60 Random Glucose Fasting Glucose 143 H Lactic Acid Calcium 8.0 L Urine Color YELLOW Urine Appearance CLEAR Urine pH 6.0 Ur Specific [place] 1.010 Urine Protein NEG Urine Glucose (UA) NEG Urine Ketones NEG Urine Blood 1+ H Urine Nitrite NEG Ur Leukocyte Esterase NEG Urine RBC 0-2 Urine WBC 0 Ur Squamous Epith Cells NONE Urine Bacteria TRACE Nasal Screen MRSA (PCR) Nasal S. aureus Screen Nasal MRSA/S.aureus Interp COVID-19 ([facility]) COVID-19 Clin Com Blood Type Antibody Screen 09/06/20 09/06/20 05:43 05:43 WBC 12.9 H RBC 3.01 L Hgb 9.1 L Hct 27.8 L MCV 92.4 MCH 30.2 MCHC 32.7 RDW 12.3 Plt Count 215 MPV 9.4 Immature Gran % (Auto) 0.4 Neut % (Auto) 77.9 H Lymph % (Auto) 11.9 L [place] % (Auto) 9.1 Eos % (Auto) 0.5 Baso % (Auto) 0.2 Lymph # (Auto) 1.5 [place] # (Auto) 1.2 Eos # (Auto) 0.1 Baso # (Auto) 0.0 Abs Immat Gran (auto) 0.05 H Absolute Neuts (auto) 10.1 H Absolute Nucleated RBC 0.000 Nucleated RBC % (auto) 0.0 Sodium 138 Potassium 4.1 Chloride 101 Carbon Dioxide 26 Anion Gap 15 BUN 13 Creatinine 0.78 Estim Creat Clear Calc 114.0 Estimated GFR > 60 Random Glucose Fasting Glucose 122 H Lactic Acid Calcium 8.3 L Urine Color Urine Appearance Urine pH Ur Specific [place] Urine Protein Urine Glucose (UA) Urine Ketones Urine Blood Urine Nitrite Ur Leukocyte Esterase Urine RBC Urine WBC Ur Squamous Epith Cells Urine Bacteria Nasal Screen MRSA (PCR) Nasal S. aureus Screen Nasal MRSA/S.aureus Interp COVID-19 ([facility]) COVID-19 Clin Com Blood Type Antibody Screen Preliminary micro results at discharge 09/04/20 17:37 Blood Culture - Preliminary Blood - Venous No growth after 24 hours. 09/04/20 17:37 Blood Culture - Preliminary Blood - Venous No growth after 24 hours. Discharge Plan Discharge Patient Disposition: Home Health Service Referrals: [facility] [Outside] Deepak Em MD [Physician] - Vijay Flanagan-ALEJANDRO Reardon [Physician Corporate Investigator] - (09/20/20 at 12:30) Discharge Medications: New celecoxib 200 mg Capsule 200 mg PO BID 30 Days Qty: 60 RF: 0 sennosides [Senna Lax] 8.6 mg Tablet 17.2 mg PO BEDTIME PRN (Reason: Constipation) 30 Days Qty: 30 RF: 0 acetaminophen 325 mg Tablet 650 mg PO Q6H PRN (Reason: Pain, Mild (Pain Scale 1-3)) 30 Days Qty: 240 RF: 0 aspirin 325 mg Tablet 325 mg PO BID 14 Days Qty: 28 RF: 0 oxycodone 5 mg Tablet 10 mg PO Q4H PRN (Reason: Pain, Moderate (Pain Scale 4-6) 7 Days RF: 0 Continued omeprazole 20 mg Capsule,Delayed Release(Dr/Ec) 20 mg PO DAILY PRN (Reason: Acid Reflux) RF: 0 buspirone 5 mg tablet 5 mg PO BID RF: 0 lisinopril 10 mg Tablet 10 mg PO DAILY RF: 0 finasteride 1 mg tablet 1 mg PO DAILY RF: 0 bupropion HCl 150 mg tablet extended release 24 hr 450 mg PO DAILY RF: 0 lorazepam 0.5 mg tablet 0.5 mg PO DAILY PRN (Reason: anxiety) RF: 0 buprenorphine-naloxone [Suboxone] 8-2 mg film 1.5 film buccal Q24H RF: 0 Discontinued ibuprofen [Advil] 200 mg Tablet 400 mg PO Q8H PRN (Reason: Pain) RF: 0 Discharge Orders: Discharge Order (Routine); Ordered 09/06/20 Ordered By: Nan Newton Diet: regular diet Activity on Discharge: Use cane or walker Stand Alone Forms: Patient Portal Discharge page Care Plan Goals: Restroe function of rt knee Health Concerns: none Plan of Treatment: Physical Therapy for ROM 0-120, quad strength, gait training. Use walker for ambulation Limit stair climbing, No shower, No tub bath, No driving Continue anticoagulant Keep Aquacel dressing clean, dry and intact. Follow up with orthopedics in 2 weeks Discharge Date/Time: 09/06/20 10:06
--- NOTE | 2020-09-06 07:52 | MHC.CM.PN ---
Patient has been medically cleared for dc to home today, with VNA. A referral was made to [facility], who has been made aware of today's dc.
[2020-09-06 07:58] VITALS: BP 114/68; PULSE 91; RESP 18; TEMP 37.1; O2SAT 98
--- NOTE | 2020-09-06 09:39 | HO.PM.IMPN ---
Subjective Subjective Date of Service: 09/06/20 Interval History: knee pain Cardiovascular Cardiovascular: Reports no additional cardiovascular complaints Gastrointestinal Gastrointestinal: Reports no additional gastrointestinal complaints Physical Exam Vital Signs: Vital Signs: Last Vital Signs Temp 98.8 F 09/06/20 07:58 Pulse 91 09/06/20 07:58 Resp 18 09/06/20 07:58 BP 114/68 09/06/20 07:58 Pulse Ox 98 09/06/20 07:58 Body Mass Index 31.1 General: AO X 3, no acute distress Resp: CTA bilateral CVS: S1,S2,RRR GI: soft, non tender, non distended Neuro: motor grossly intact Psych: appropriate affect Objective Data Current Medications Generic Name Dose Route Start Last Admin Trade Name Freq PRN Reason Stop Dose Admin Acetaminophen 650 mg 09/04/20 11:26 09/06/20 07:43 Acetaminophen 325 Mg Tablet PO 650 mg Q6H PRN Administration Pain, Mild (Pain Scale 1-3) Aspirin 325 mg 09/05/20 10:00 09/06/20 07:42 Aspirin 325 Mg Tablet PO 325 mg BID CIRA Administration Buprenorphine/Naloxone 1.5 film 09/04/20 12:00 09/05/20 12:07 Buprenorphine/Naloxone 8/2 Mg Film BUCCAL Not Given Q24H CIRA Bupropion HCl 450 mg 09/05/20 09:00 09/06/20 07:43 Bupropion Hcl Xl 150 Mg Tab.Er.24h PO 450 mg DAILY CIRA Administration Buspirone HCl 5 mg 09/04/20 21:00 09/06/20 07:44 Buspirone Hcl 5 Mg Tablet PO 5 mg BID CIRA Administration Celecoxib 200 mg 09/04/20 21:00 09/06/20 07:43 Celecoxib 200 Mg Capsule PO 200 mg BID CIRA Administration Hydromorphone HCl 0.5 mg 09/04/20 16:30 09/05/20 10:01 Hydromorphone Hcl 0.5 Mg/0.5 Ml Syringe IVPUSH 0.5 mg Q3H PRN Administration Pain, Severe (Pain Scale 7-10) Lorazepam 2 mg 09/04/20 11:26 09/05/20 20:40 Lorazepam 1 Mg Tablet PO 2 mg DAILY PRN Administration Anxiety Naloxone HCl 0.2 mg 09/04/20 11:26 Naloxone Hcl 0.4 Mg/Ml Vial IVPUSH Q2M PRN Excessive sedation or RR < 8 Omeprazole 20 mg 09/04/20 11:26 Omeprazole 20 Mg Capsule.Dr PO DAILY PRN Acid Reflux Ondansetron HCl 4 mg 09/04/20 11:26 09/04/20 15:11 Ondansetron Hcl 4 Mg/2 Ml Vial IVPUSH 4 mg Q8H PRN Administration Nausea and Vomiting Oxycodone HCl 10 mg 09/04/20 11:26 09/06/20 07:44 Oxycodone Hcl Immed Release 5 Mg Tablet PO 10 mg Q4H PRN Administration Pain, Moderate (Pain Scale 4-6 Oxycodone HCl 10 mg 09/04/20 21:00 09/05/20 20:40 Oxycodone Hcl Er 10 Mg Tab.Er.12h PO 10 mg BID CIRA Administration Senna 17.2 mg 09/04/20 11:26 Sennosides 8.6 Mg Tablet PO BEDTIME PRN Constipation Sodium Chloride 3 ml 09/04/20 16:00 09/06/20 01:04 0.9 % Sodium Chloride Flush 3 Ml Syringe IVFLUSH 3 ml QSHIFT CIRA Administration Labs CBC & Chem 7: 09/06/20 05:43 09/06/20 05:43 Microbiology Microbiology Results: Microbiology 09/04/20 17:37 Blood - Venous Blood Culture - Preliminary No growth after 24 hours. 09/04/20 17:37 Blood - Venous Blood Culture - Preliminary No growth after 24 hours. Assessment and Plan (1) Localized osteoarthritis of right knee: Status: Acute Assessment and Plan: 65 year old man admitted by orthopedic surgery and is status post right knee arthroplasty Right knee arthroplasty. Management as per surgical team. fever has not recurred culture negative, no signs of infection Hx of opiod abuse. Oxycodone abuse. On Suboxone. Continue. HTN. Continue Lisinopril. GERD. PPI.
[2020-09-06] MEDS: oxyCODONE HCl ER 10 MG TAB.ER.12H PO (09:51)
== END 2020-09-06 10:06 | disposition home health service (06) | DRG 302 ==
LOC: HO.SSSA 05:53 → HO.S3 10:37
PROVIDERS: Nurse Practitioner Acute Care; Physician Assistant; Admitting Provider Orthopaedic Surgery; PCP Nurse Practitioner Family; Visit Provider Orthopaedic Surgery
PROC: (CPT 27447; principal; 2020-09-04 07:30)
DX: M17.11 Unilateral primary osteoarthritis, right knee (principal); E87.1 Hypo-osmolality and hyponatremia; I10 Essential (primary) hypertension; F11.20 Opioid dependence, uncomplicated; K21.9 Gastro-esophageal reflux disease without esophagitis; Z20.822 Contact with and (suspected) exposure to COVID-19; R50.82 Postprocedural fever; Z79.1 Long term (current) use of non-steroidal anti-inflammatories (NSAID); Z79.82 Long term (current) use of aspirin; Z79.899 Other long term (current) drug therapy
CPT/HCPCS: 36415; 71045; 73560; 80048; 81001; 83605; 85025; 86850; 86900; 86901; 87040; 87635; 87640; 87641; 88305; 88311; 97110; 97116; 97162; 97530; C1776; J0574; J0690; J1170; J2250; J2370; J2405

== ENCOUNTER → 2020-09-20 12:28 | Outpatient (BNVA) | payer BC, SELFPAY | PROVIDERS: Visit Provider Physician Assistant ==

== ENCOUNTER 2020-10-18 08:19 | Outpatient (REF) | payer BC, SELFPAY ==
--- NOTE | ~2020-10-18 | XR_ITS ---
EXAMINATION: XR KNEE, BILATERAL AP STANDING XR KNEE, RIGHT CLINICAL INFORMATION: Right knee pain. COMPARISON: None TECHNIQUE: AP bilateral knees standing. Right knee 2 views. FINDINGS: AP BILATERAL KNEE: There is a total right knee arthroplasty with prosthetic components in satisfactory alignment. There is severe medial and moderate lateral compartment loss of joint space left knee. There is moderate lateral compartment periarticular spurring. RIGHT KNEE: There is a total knee prosthesis with prosthetic components in satisfactory alignment. There is no loosening. There is mild suprapatellar joint effusion seen. There is no fracture or loose body seen. XR/XR knee standing BI IMPRESSION: Total right knee arthroplasty in satisfactory alignment. No prosthetic loosening seen. There is mild suprapatellar joint effusion. No loose bodies noted. Degenerative arthritic changes left knee. No fracture seen.
--- NOTE | ~2020-10-18 | XR_ITS ---
EXAMINATION: XR KNEE, BILATERAL AP STANDING XR KNEE, RIGHT CLINICAL INFORMATION: Right knee pain. COMPARISON: None TECHNIQUE: AP bilateral knees standing. Right knee 2 views. FINDINGS: AP BILATERAL KNEE: There is a total right knee arthroplasty with prosthetic components in satisfactory alignment. There is severe medial and moderate lateral compartment loss of joint space left knee. There is moderate lateral compartment periarticular spurring. RIGHT KNEE: There is a total knee prosthesis with prosthetic components in satisfactory alignment. There is no loosening. There is mild suprapatellar joint effusion seen. There is no fracture or loose body seen. XR/XR knee RT 2V IMPRESSION: Total right knee arthroplasty in satisfactory alignment. No prosthetic loosening seen. There is mild suprapatellar joint effusion. No loose bodies noted. Degenerative arthritic changes left knee. No fracture seen.
== END 2020-10-18 08:20 | disposition home or self-care (01) ==
LOC: HO.HOSX 08:19
PROVIDERS: Visit Provider Orthopaedic Surgery
DX: M17.12 Unilateral primary osteoarthritis, left knee (principal); H93.19 Tinnitus, unspecified ear; Z47.1 Aftercare following joint replacement surgery; Z96.651 Presence of right artificial knee joint; Z87.891 Personal history of nicotine dependence
CPT/HCPCS: 20610; 73560; 73565; J1100

== ENCOUNTER → 2021-01-10 12:01 | Outpatient (BNVA) | payer BC, SELFPAY | PROVIDERS: PCP Nurse Practitioner Family; Visit Provider Orthopaedic Surgery | DX: M17.12 Unilateral primary osteoarthritis, left knee (principal) | CPT/HCPCS: 20610; J1100 ==

== ENCOUNTER → 2021-03-20 10:41 | Outpatient (BNVA) | payer BC, SELFPAY | PROVIDERS: PCP Nurse Practitioner Family; Visit Provider Physician Assistant | DX: M65.331 Trigger finger, right middle finger (principal) | CPT/HCPCS: 20550; J1020 ==

== ENCOUNTER → 2021-05-20 10:28 | Outpatient (BNVA) | payer BC, SELFPAY | PROVIDERS: Visit Provider Orthopaedic Surgery | DX: M17.12 Unilateral primary osteoarthritis, left knee (principal) | CPT/HCPCS: 20610; J1100 ==

== ENCOUNTER → 2021-09-02 11:08 | Outpatient (BNVA) | payer BC, SELFPAY | PROVIDERS: Visit Provider Orthopaedic Surgery | DX: M17.12 Unilateral primary osteoarthritis, left knee (principal) | CPT/HCPCS: 20610; J1040; J1100 ==

== ENCOUNTER → 2021-11-04 11:03 | Outpatient (BNVA) | payer BC, SELFPAY | PROVIDERS: Visit Provider Orthopaedic Surgery | DX: Z13.89 Encounter for screening for other disorder (principal) ==

== ENCOUNTER → 2021-12-09 11:19 | Outpatient (BNVA) | payer BC, SELFPAY | PROVIDERS: Visit Provider Orthopaedic Surgery | DX: M17.12 Unilateral primary osteoarthritis, left knee (principal) | CPT/HCPCS: 20610; J1100 ==

== ENCOUNTER → 2022-03-24 13:18 | Outpatient (BNVA) | payer BC, SELFPAY | PROVIDERS: Visit Provider Orthopaedic Surgery | DX: M17.12 Unilateral primary osteoarthritis, left knee (principal) | CPT/HCPCS: 20610; J1100 ==

== ENCOUNTER → 2022-06-30 10:29 | Outpatient (BNVA) | payer BC, SELFPAY | PROVIDERS: PCP Nurse Practitioner Family; Visit Provider Orthopaedic Surgery | DX: M17.12 Unilateral primary osteoarthritis, left knee (principal) | CPT/HCPCS: 20610; J1100 ==

== ENCOUNTER → 2022-10-24 11:07 | Outpatient (BNVA) | payer BC, SELFPAY | PROVIDERS: PCP Nurse Practitioner Family; Visit Provider Orthopaedic Surgery | DX: M17.12 Unilateral primary osteoarthritis, left knee (principal) | CPT/HCPCS: 20610; J1100 ==

== ENCOUNTER → 2023-01-29 11:27 | Outpatient (BNVA) | payer BC, SELFPAY | PROVIDERS: PCP Nurse Practitioner Family; Visit Provider Orthopaedic Surgery | DX: M17.12 Unilateral primary osteoarthritis, left knee (principal) | CPT/HCPCS: 20610; J1100 ==

== ENCOUNTER 2023-08-07 10:21 | Outpatient (AMB) | payer BC, SELFPAY ==
--- NOTE | 2023-08-07 10:24 | MHC.OFFVIS ---
Intake Vital Signs 08/07/23 10:25 Height 5 ft 10 in Intake Visit Reasons: OV-Left Knee OA, last inj 01/29/23 Intake Note: Sukhjinder is a 68 year old female who presents today for a follow up of his Left knee. Last injection was done on 01/29/2023. He would like to discuss another injection. Allergies No Known Allergies Allergy (Mild, Verified 08/07/23 10:29) NOT APPLICABLE HPI OV-Left Knee OA, last inj 01/29/23 HPI Details Sukhjinder is a 68 year old man with left knee OA. He has a Hx of good relief from injections, his most recent on 01/29/23. He says he is doing well overall but his pain has started to return. He has difficulty descending stairs but finds it easier to climb stairs with his knee. PFS Medical History History of opioid abuse Acid reflux History of anemia Depression Anxiety Hypertension Localized osteoarthritis of right knee Surgical History Hx of total knee replacement (09/04/21) Hx of abdominal surgery History of carpal tunnel release Hx of arthroscopy of left knee Social History Household Members: Family Housing: House Are you a primary child care to a significant other at home: No Do you presently have visiting nurse or other home services: No Comment: pt says the pain is always but its better will apply ice Second Hand Smoke Exposure: Yes Current occupational status: employed Current occupation: rt handed[employer] ([employer]) Review of Systems Const All systems reviewed & are unremarkable except as noted in HPI and below Physical Exam Const General: no acute distress, alert and awake Orientation/consciousness: patient oriented x3 HEENT Head: Yes normocephalic and Yes atraumatic Eyes EOM: EOMs intact bilaterally Resp Effort & Inspection: normal respiratory effort and able to speak in complete sentences Cardio Jugular venous distension: no JVD Skin General skin exam: turgor normal Rashes: no rashes Neuro General: patient oriented x3 Extrem Other: Trace effusion ttp medial joint line Psych Appearance: grossly normal Affect: normal affect Attitude: cooperative Office Procedures Joint Injection/Drain Joint Injection/Drain Details: Injected 1 mL of Decadron and 3 mL 1% lidocaine and 3 mL of 0.25% Marcaine. Site was prepped using aseptic technique. Patient tolerated the procedure well. Primary Site: left knee Approach Used: anterolateral Coding - Large joint Procedure code (CPT) selection complete Assessment & Plan Assessment & Plan (1) Osteoarthritis of left knee: Code(s): M17.12 - Unilateral primary osteoarthritis, left knee Plan: Injected left knee Discussed treatment options Injections are helpful for him and may f/u as needed. Plan Scribed for Deepak Em MD by Sacha Dobbs, medical equipment repair technician, on 08/07/23 at 10:35 AM, EST. Coding Level of Care Code Est Pt Level 3 (41026) Diagnoses Osteoarthritis of left knee M17.12 CPT Codes Coding - Large joint: 86844 - Large joint ([id number])
== END 2023-08-07 11:10 | disposition home or self-care (01) ==
PROVIDERS: PCP Nurse Practitioner Family; Visit Provider Orthopaedic Surgery
DX: M17.12 Unilateral primary osteoarthritis, left knee (principal)
CPT/HCPCS: 20610; 99213

== ENCOUNTER → 2023-08-07 10:21 | Outpatient (BNVA) | payer BC, SELFPAY | PROVIDERS: PCP Nurse Practitioner Family; Visit Provider Orthopaedic Surgery | DX: M17.12 Unilateral primary osteoarthritis, left knee (principal) | CPT/HCPCS: 20610; J0665; J1100 ==

== ENCOUNTER 2024-02-08 10:46 | Outpatient (AMB) | payer MEDICARE, BC, SELFPAY ==
--- NOTE | 2024-02-08 10:48 | MHC.OFFVIS ---
Vital Signs 02/08/24 11:03 Height 5 ft 10 in Weight 198 lb BMI 28.4 Intake Visit Reasons: Inj-Left Knee OA, last inj 08/07/23 Intake Note: Sukhjinder is a 68 year old male who presents today for a follow up of his Left Knee OA, last injection 08/07/23. Patient reports he has a severe strain in his hamstring that occured in December. He was lifting heavy objects and believes he tweaked his hamstring in his right knee when carrying these things. He is unable to sleep at night due to pain and has to take sleeping aid medication to help him sleep well. He express his pain is the worse when he is sitting and laying down. During the morning he has to ice his knee to be able to gain ROM. He takes tiger balm and Advil for his right knee but expresses short, temporary relief. He wears a compression sleeve for right leg hamstring discomfort. He has cut back on his daily activities due to his pain. His last injection provide him with a few months of relief and would like to repeat left knee injection today. Hx of Right TKA 09/04/20 w/ NE. Allergies No Known Allergies Allergy (Mild, Verified 02/08/24 11:08) NOT APPLICABLE HPI HPI Inj-Left Knee OA, last inj 08/07/23: Details: Sukhjinder is a 68 year old male who presents today for a follow up of his Left Knee OA, last injection 08/07/23. Patient reports he has a severe strain in his hamstring that occured in December. He was lifting heavy objects and believes he tweaked his hamstring in his right knee when carrying these things. He is unable to sleep at night due to pain and has to take sleeping aid medication to help him sleep well. He express his pain is the worse when he is sitting and laying down. During the morning he has to ice his knee to be able to gain ROM. He takes tiger balm and Advil for his right knee but expresses short, temporary relief. He wears a compression sleeve for right leg hamstring discomfort. He has cut back on his daily activities due to his pain. His last injection provide him with a few months of relief and would like to repeat left knee injection today. Hx of Right TKA 09/04/20 w/ NE. [facility] Medical History History of opioid abuse Acid reflux History of anemia Depression Anxiety Hypertension Localized osteoarthritis of right knee Surgical History Hx of total knee replacement (09/04/21) Hx of abdominal surgery History of carpal tunnel release Hx of arthroscopy of left knee Social History Household Members: Family Housing: House Are you a primary personal care attendant to a significant other at home: No Do you presently have visiting nurse or other home services: No Comment: pt says the pain is always but its better will apply ice Second Hand Smoke Exposure: Yes service: No Current occupational status: retired Current occupation: rt handed Physical Exam Vital Signs: BMI result Body Mass Index 28.4 Extrem Other: ttp medial compartment left knee Right hamstring tightness with stretch Office Procedures Joint Injection/Drain Joint Injection/Drain Details: Injected 1 mL of Decadron and 3 mL 1% lidocaine and 3 mL of 0.25% Marcaine. Site was prepped using aseptic technique. Patient tolerated the procedure well. Primary Site: left knee Approach Used: anterolateral Coding 10397 - Large joint Procedure code (CPT) selection complete Assessment & Plan Assessment & Plan (1) Osteoarthritis of left knee: Code(s): M17.12 - Unilateral primary osteoarthritis, left knee Category: Medical Plan: Injected left knee. (2) Right hamstring muscle strain: Code(s): S76.311A - Strain of muscle, fascia and tendon of the posterior muscle group at thigh level, right thigh, initial encounter Category: Medical Plan: PT for HEP Coding Level of Care Code Est Pt Level 4 (83259) Diagnoses Osteoarthritis of left knee M17.12 Right hamstring muscle strain S76.311A CPT Codes Coding - Large joint: 97999 - Large joint ([id number])
[2024-02-08 11:03] VITALS: BMI 28.4
== END 2024-02-08 11:18 | disposition home or self-care (01) ==
PROVIDERS: PCP Nurse Practitioner Family; Visit Provider Orthopaedic Surgery
DX: M17.12 Unilateral primary osteoarthritis, left knee (principal); S76.311A Strain of muscle, fascia and tendon of the posterior muscle group at thigh level, right thigh, initial encounter
CPT/HCPCS: 20610; 99214

== ENCOUNTER → 2024-02-08 10:46 | Outpatient (BNVA) | payer MEDICARE, BC, SELFPAY | PROVIDERS: PCP Nurse Practitioner Family; Visit Provider Orthopaedic Surgery | DX: M17.12 Unilateral primary osteoarthritis, left knee (principal); S76.311A Strain of muscle, fascia and tendon of the posterior muscle group at thigh level, right thigh, initial encounter | CPT/HCPCS: 20610; J0665; J1100 ==

== ENCOUNTER 2024-07-21 10:00 | Outpatient (AMB) | payer MEDICARE, BC, SELFPAY ==
--- NOTE | 2024-07-21 10:02 | A.OFFVIS_ITS ---
Intake Visit Reasons: Inj-Left knee injection-last inj 02/08/24 Intake Note: jose r is a 68 year old male who presents today for a follow up of his Left Knee OA, last injection 02/08/24. Patient reports that this last injection was helpful and he would like to repeat injection today. when he was last seen there was concerns for a right hamstring strain, patient reports that this was actually sciatica - his symptoms are resolving. Allergies No Known Allergies Allergy (Mild, Verified 02/08/24 11:08) NOT APPLICABLE HPI HPI Inj-Left knee injection-last inj 02/08/24: Details: jose r is a 68 year old male who presents today for a follow up of his Left Knee OA, last injection 02/08/24. Patient reports that this last injection was helpful and he would like to repeat injection today. when he was last seen there was concerns for a right hamstring strain, patient reports that this was actually sciatica - his symptoms are resolving. [facility] Medical History History of opioid abuse Acid reflux History of anemia Depression Anxiety Hypertension Localized osteoarthritis of right knee Surgical History Hx of total knee replacement (09/04/21) Hx of abdominal surgery History of carpal tunnel release Hx of arthroscopy of left knee Social History Household Members: Family Housing: House Are you a primary healthcare advisory services manager to a significant other at home: No Do you presently have visiting nurse or other home services: No Comment: pt says the pain is always but its better will apply ice Second Hand Smoke Exposure: Yes service: No Current occupational status: retired Current occupation: rt handed Physical Exam Const General: no acute distress, alert and awake Orientation/consciousness: patient oriented x3 HEENT Head: Yes normocephalic and Yes atraumatic Eyes EOM: EOMs intact bilaterally Resp Effort & Inspection: normal respiratory effort and able to speak in complete sentences Cardio Jugular venous distension: no JVD Skin General skin exam: turgor normal Rashes: no rashes Neuro General: patient oriented x3 Extrem Other: Trace effusion ttp medial joint line Psych Appearance: grossly normal Affect: normal affect Attitude: cooperative Office Procedures Joint Inj/Aspir; Non-Pain Clin Joint Injection/Drain Details: Injected 1 mL of Decadron and 3 mL 1% lidocaine and 3 mL of 0.25% Marcaine. Site was prepped using aseptic technique. Patient tolerated the procedure well. Approach Used: anterolateral Shoulders, Hips, Knees, Knee Large Joint Injection 46190: Left Knee Coding Procedure code (CPT) selection complete Assessment & Plan Assessment & Plan (1) Osteoarthritis of left knee: Code(s): M17.12 - Unilateral primary osteoarthritis, left knee Category: Medical Plan: This is a 69-year-old gentleman with left knee osteoarthritis. I have injected his knees in the past and today I injected his left knee. He will return to see me in 3 months if he so desires. In the meantime continue activity as tolerated. Coding Level of Care Code Est Pt Level 3 (24449) Diagnoses Osteoarthritis of left knee M17.12 CPT Codes Shoulders, Hips, Knees, - Knee Large Joint Injection : Left Knee ([id number])
== END 2024-07-21 12:59 | disposition home or self-care (01) ==
PROVIDERS: PCP Nurse Practitioner Family; Visit Provider Orthopaedic Surgery
DX: M17.12 Unilateral primary osteoarthritis, left knee (principal)
CPT/HCPCS: 20610; 99213

== ENCOUNTER → 2024-07-21 10:00 | Outpatient (BNVA) | payer MEDICARE, BC, SELFPAY | PROVIDERS: PCP Nurse Practitioner Family; Visit Provider Orthopaedic Surgery | DX: M17.12 Unilateral primary osteoarthritis, left knee (principal) | CPT/HCPCS: 20610; 99212; J0665; J1100; J2003 ==